=== PATIENT | female | born 1990 | race Two or more races ===

== ENCOUNTER 2021-02-23 14:06 | Emergency (ER) | payer OTHER, SELFPAY ==
[~2021-02-23] VITALS: Ht 157.5 cm; Wt 81.8 kg
[~2021-02-23 14:06] MED LIST: NOCURR
[2021-02-23] MEDS ORDERED: FAMOTIDINE 20 MG TABLET PO ONE (14:45)
[2021-02-23] MEDS ORDERED: PB/HYOSCY/ATR/SCOP/LIDO/MAALOX 55 ML BOTTLE PO ONE (14:45)
[2021-02-23 15:20] LABS: BASOPHILS % (AUTO) 0.4 % (0.0-2.0); EOSINOPHILS % (AUTO) 0.3 % (1.0-6.0); HEMATOCRIT 33.8 % (36-46); HEMOGLOBIN 11.9 g/dL (12.0-16.0); LYMPHOCYTES % (AUTO) 20.4 % (22.0-44.0); MEAN CORPUSCULAR HEMOGLOBIN 32.3 pg (26.0-34.0); MEAN CORPUSCULAR HGB CONC 35.2 G/dL (31.0-37.0); MEAN CORPUSCULAR VOLUME 92 fL (80-100); MONOCYTES # (AUTO) 0.7 K/uL (0.1-1.0); MONOCYTES % (AUTO) 7.4 % (2.0-9.0); NEUTROPHILS % (AUTO) 71.5 % (40.0-70.0); PLATELET COUNT (AUTO) 232 K/uL (150-450); RED BLOOD CELL COUNT(AUTO) 3.69 MIL/uL (4.00-5.20); RED CELL DISTRIBUTION WIDTH 14.1 % (11.5-14.5)
[2021-02-23 15:30] LABS: ANION GAP 5 mmol/L (8-16); CARBON DIOXIDE 28 mmol/L (22-29); CHLORIDE 106 mmol/L (98-107); CREATININE 0.79 mg/dL (0.60-1.30); GLOMERULAR FILTR. RATE CALC > 60 mL/min (>60); GLUCOSE,RANDOM 84 mg/dL (70-110); POTASSIUM 4.1 mmol/L (3.5-5.1); SODIUM SERUM 139 mmol/L (136-145); UREA NITROGEN, BLOOD 11 mg/dL (7-18)
[2021-02-23 15:41] LABS: ALANINE AMINOTRANSFERASE 24 U/L (12-78); ALBUMIN 3.8 g/dL (3.4-5.0); ALKALINE PHOSPHATASE 72 U/L (46-116); ASPARTATE AMINOTRANSFERASE 17 U/L (15-37); HCG,QUANTITATIVE < 1 mIU/mL (0-6); LIPASE 81 U/L (73-393); TOTAL PROTEIN, SERUM 7.2 g/dL (6.4-8.2)
[2021-02-23 16:42] VITALS: BP 123/58
== END 2021-02-23 17:28 | disposition home or self-care (01) ==
LOC: EMS 14:10
DX: K21.9 Gastro-esophageal reflux disease without esophagitis (principal); Z90.89 Acquired absence of other organs
CPT/HCPCS: 71045; 80053; 83690; 84484; 84702; 85025; 93005; 99285; 36415-L1; 36415-TC